=== PATIENT | male | born 2000 | race Caucasian/White ===

== ENCOUNTER 2021-06-28 10:04 | Emergency (ER) | payer MEDICAID ==
[~2021-06-28] VITALS: Ht 182.9 cm; Wt 104.0 kg
[2021-06-28 10:15] VITALS: BP 138/89
[2021-06-28] MEDS ORDERED: ACET-2708 MT (10:44)
== END 2021-06-28 10:57 | disposition home or self-care (01) ==
LOC: ER 10:04
DX: S80.812A Abrasion, left lower leg, initial encounter (principal); W17.1XXA Fall into storm drain or manhole, initial encounter; Y93.89 Activity, other specified; Y92.89 Other specified places as the place of occurrence of the external cause; Y99.8 Other external cause status
CPT/HCPCS: 73590; 99283